=== PATIENT | female | born 1965 | race Caucasian/White ===

== ENCOUNTER → 2017-01-20 | Outpatient (CLI) | payer MEDICARE, OTHER | LOC: CT 01-18 14:00 | DX: C18.9 Malignant neoplasm of colon, unspecified (principal); C78.7 Secondary malignant neoplasm of liver and intrahepatic bile duct; J18.9 Pneumonia, unspecified organism; R10.9 Unspecified abdominal pain; R11.2 Nausea with vomiting, unspecified; Z03.89 Encounter for observation for other suspected diseases and conditions ruled out; R93.8 Abnormal findings on diagnostic imaging of other specified body structures; R10.31 Right lower quadrant pain; S22.39XA Fracture of one rib, unspecified side, initial encounter for closed fracture; M81.0 Age-related osteoporosis without current pathological fracture; M94.9 Disorder of cartilage, unspecified; R74.8 Abnormal levels of other serum enzymes; R91.1 Solitary pulmonary nodule; R53.81 Other malaise; R06.02 Shortness of breath; R59.0 Localized enlarged lymph nodes | CPT/HCPCS: 71260; J7050; Q9962 ==

== ENCOUNTER → 2021-03-13 | Outpatient (CLI) | payer MEDICARE, OTHER ==
[~2021-03-13] MED LIST: ALBUTEROL INHALER INH; CELEXA40 MG PO; LASIX40 MG PO; NAPROXEN500 MG PO; NEURONTIN600 MG PO; PHENERGAN 25 MG25 M1 PO; XANAX0.5 MG PO
== END ==
LOC: CT 02-17 14:00
DX: C18.9 Malignant neoplasm of colon, unspecified (principal); C78.7 Secondary malignant neoplasm of liver and intrahepatic bile duct; K76.9 Liver disease, unspecified; M94.9 Disorder of cartilage, unspecified; R53.81 Other malaise; J43.9 Emphysema, unspecified
CPT/HCPCS: 71260; Q9967

== ENCOUNTER → 2021-04-22 | Outpatient (CLI) | payer MEDICARE, OTHER ==
[2021-04-22 09:07] LABS: HEMOGLOBIN 12.8 gm/dl (12.3-15.3); RED BLOOD COUNT 3.96 M/UL (4.00-5.10); WHITE BLOOD COUNT 10.5 K/UL (4.5-11.0)
== END ==
LOC: US 04-01 10:00 → CT 07:59 → US 10:00
PROVIDERS: Internal Medicine
DX: C78.7 Secondary malignant neoplasm of liver and intrahepatic bile duct (principal); C18.9 Malignant neoplasm of colon, unspecified; Z79.899 Other long term (current) drug therapy
CPT/HCPCS: 36415; 77012; 85025; 85610; 85730; 88341; 88342; Q9963

== ENCOUNTER → 2021-05-22 | Outpatient (CLI) | payer MEDICARE, OTHER | LOC: MRI 12:39 | DX: Z03.89 Encounter for observation for other suspected diseases and conditions ruled out (principal); C18.9 Malignant neoplasm of colon, unspecified; C78.7 Secondary malignant neoplasm of liver and intrahepatic bile duct; R93.89 Abnormal findings on diagnostic imaging of other specified body structures; M19.012 Primary osteoarthritis, left shoulder | CPT/HCPCS: 73223; A9577 ==

== ENCOUNTER → 2022-06-01 | Outpatient (CLI) | payer MEDICARE, OTHER | LOC: KOH-I 09:00 | DX: F17.210 Nicotine dependence, cigarettes, uncomplicated (principal); R91.8 Other nonspecific abnormal finding of lung field | CPT/HCPCS: 71271 ==

== ENCOUNTER → 2022-06-18 | Outpatient (CLI) | payer MEDICARE, OTHER | LOC: CT 06-05 10:30 | DX: C18.9 Malignant neoplasm of colon, unspecified (principal); R92.8 Other abnormal and inconclusive findings on diagnostic imaging of breast | CPT/HCPCS: Q9967 ==

== ENCOUNTER → 2022-07-08 | Outpatient (CLI) | payer MEDICARE, OTHER | LOC: MRI 16:00 | DX: C18.9 Malignant neoplasm of colon, unspecified (principal); C78.7 Secondary malignant neoplasm of liver and intrahepatic bile duct; R92.8 Other abnormal and inconclusive findings on diagnostic imaging of breast | CPT/HCPCS: 74181 ==